=== PATIENT | male | born 1965 | race Caucasian/White ===

== ENCOUNTER 2017-05-11 11:34 | Emergency (ER) | payer SELFPAY ==
[~2017-05-11] VITALS: Ht 177.8 cm; Wt 86.5 kg
[2017-05-11] MEDS ORDERED: FLEXERIL10 MG PO (12:29)
[2017-05-11] MEDS ORDERED: LIDODERM 5% P1 PATCH TD (12:29)
[2017-05-11] MEDS ORDERED: MOTRIN800 MG PO (12:29)
[2017-05-11 12:37] VITALS: BP 164/116
== END 2017-05-11 12:39 | disposition home or self-care (01) ==
LOC: EME 11:34
DX: S46.912A Strain of unspecified muscle, fascia and tendon at shoulder and upper arm level, left arm, initial encounter (principal)
CPT/HCPCS: 73030; 99281; 99283